=== PATIENT | female | born 1930 ===

== ENCOUNTER → 2017-04-04 | Outpatient (CLI) | payer MEDICARE ==
[~2017-04-04] VITALS: Ht 144.8 cm; Wt 59.0 kg
[~2017-04-04] MED LIST: AMIO200T44 PO; AMLO-511 PO; ASPI-556 PO; CETI-260 PO; CRAN450T10 PO; CYAN50008 PO; FURO20 PO; LEVO50 PO; LEVO75 PO; METO25 PO; NITR25OR3 PO; OMEG300C3 PO; OXYC-522 PO; RIVA15T PO; ROSU20 PO
[2017-04-04 13:06] VITALS: BP 108/61
== END | disposition home or self-care (01) ==
LOC: SRCNTR 12:47
PROVIDERS: ATTEND Internal Medicine
DX: I11.0 Hypertensive heart disease with heart failure (principal); I50.9 Heart failure, unspecified; I25.10 Atherosclerotic heart disease of native coronary artery without angina pectoris; I35.0 Nonrheumatic aortic (valve) stenosis; J44.1 Chronic obstructive pulmonary disease with (acute) exacerbation; J18.9 Pneumonia, unspecified organism; E78.5 Hyperlipidemia, unspecified; I48.0 Paroxysmal atrial fibrillation
CPT/HCPCS: G0463

== ENCOUNTER → 2017-05-02 | Outpatient (CLI) | payer MEDICARE ==
[~2017-05-02] VITALS: Ht 144.8 cm; Wt 53.9 kg
[~2017-05-02] MED LIST changes: +CLOB60CR12 TP
[2017-05-02 12:44] VITALS: BP 119/71
== END | disposition home or self-care (01) ==
LOC: SRCNTR 12:40
PROVIDERS: ATTEND Internal Medicine
DX: I11.0 Hypertensive heart disease with heart failure (principal); I50.9 Heart failure, unspecified; I35.0 Nonrheumatic aortic (valve) stenosis; I25.10 Atherosclerotic heart disease of native coronary artery without angina pectoris; I48.91 Unspecified atrial fibrillation; J98.8 Other specified respiratory disorders
CPT/HCPCS: G0463